=== PATIENT | male | born 1990 | race Caucasian/White ===

== ENCOUNTER 2022-11-26 11:35 | Emergency (ER) | payer OTHER, SELFPAY ==
[2022-11-26 11:40] VITALS: BP 167/90; PULSE 49; RESP 16; TEMP 36.6; O2SAT 99; BMI 21.8
[2022-11-26 12:24] LABS: Basophils Absolute Auto 0.1 10^3/uL (0.0-0.1); Basophils Percent Auto 0.4 % (0.2-2.0); Eosinophils Absolute Auto 0.1 10^3/uL (0.0-0.7); Eosinophils Percent Auto 0.5 % (0.9-7.0); Hematocrit 42.2 % (42.0-54.0); Hemoglobin 14.6 g/dL (14.0-18.0); Immature Granulocytes Abs Auto 0.05 10^3/uL (0.00-0.03); Immature Granulocytes Pct Auto 0.4 % (0.0-0.5); Lymphocytes Absolute Auto 1.2 10^3/uL (1.2-3.8); Lymphocytes Percent Auto 8.4 % (20.5-60.0); Mean Corpuscular HGB Conc 34.6 g/dL (29.9-35.2); Mean Corpuscular Hemoglobin 31.3 pg (25.9-34.0); Mean Corpuscular Volume 90.4 fL (80.0-94.0); Mean Platelet Volume 10.1 fL (9.5-13.5); Monocytes Absolute Auto 0.5 10^3/uL (0.3-0.8); Monocytes Percent Auto 3.3 % (1.7-12.0); Neutrophils Absolute Auto 12.2 10^3/uL (1.4-6.5); Platelet Count 235 10^3/uL (150-450); Red Blood Count 4.67 10^6/uL (4.70-6.10); Red Cell Distribution Width 12.8 % (11.0-15.0)
--- NOTE | 2022-11-26 12:26 | XR_ITS ---
[facility] [id number] Patient Name: SAULO GOTTI MRN: [id number] date: 1990 Sex: M Assigned Patient Location: ER Current Patient Location: ED.MAIN Accession/Order Number: [id number] Exam Date: 11/26/2022 12:33 Report Date: 11/26/2022 13:00 At the request of: MARVA CARRENO Procedure: XR chest 2V EXAMINATION: XR chest 2V 11/26/2022 9:59 AM PDT, [id number]. HISTORY: palp TECHNIQUE: 2 views of the chest were acquired. COMPARISONS: None. FINDINGS: Lines/tubes/other: None. Heart and mediastinum: Within normal limits. Bones: No acute osseous abnormality. Lungs: Clear. Pleura: No pleural effusion or pneumothorax. Other: No pneumoperitoneum. XR/XR chest 2V IMPRESSION: No significant cardiopulmonary abnormality. Electronically authenticated by: ANUJ PEÑA Date: 11/26/2022 13:00
--- NOTE | 2022-11-26 12:26 | ECG_ITS ---
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
--- NOTE | 2022-11-26 12:28 | ED.GENADUL1 ---
HPI - General Adult General Chief complaint: Abdominal Pain Stated complaint: SHORTNESS OF BREATH Time Seen by Provider: 11/26/22 12:24 Source: patient Mode of arrival: walk-in Limitations: no limitations History of Present Illness HPI narrative: Patient is a 32-year-old male who is presenting to the Emergency Room today with chief complaint of midepigastric pain at 8 AM. Patient has no fever or chills. No chest pain or tightness. Patient has long-standing history of acid reflux, patient takes omeprazole. Patient does not drink alcohol. Patient does smoke cigarettes daily. Patient takes one Aleve daily. Patient had ventricular fibrillation's and vegetables last night for dinner later than normal, 9:30 PM. Patient has long-standing history of acid reflux. Patient has never had EGD. Patient had the pain 8:00 this morning, patient states that he normally wakes up once or twice a night and vomits secondary to acid reflux he believes that is normal for him. Patient has no other abdominal pain, nausea, vomiting, or any other acute complaints. No urinary or bowel movements. No rash. Patient is afebrile, Patient Helps Move Boats and Transfers Them. No Heavy Lifting, Twisting or Turning at Work. His Mother Is at Bedside. . All systems are negative except as noted/marked. All systems reviewed and otherwise negative. . Nurses note and vital signs reviewed and patient is not hypoxic. Patient was seen and evaluated after patient had IV fluids, and was medicated. Patient is asymptomatic when I performed HPI and physical exam. Patient did have midepigastric pain, completely resolved. General: The patient appears well and in no apparent distress. Patient is resting comfortably on cart. Patient is not toxic, lethargic, or listless Skin: Warm, dry, no pallor noted. There is no rash noted. No petechiae, purpura. Head: Normocephalic, atraumatic Eye: Normal conjunctiva, no drainage, EOMI. PERRL Ears, Nose, Mouth, and Throat: oral mucosa is moist. Nares patent. Mouth without vesicles. Cardiovascular: Regular Rate and Rhythm, no murmur, gallop, rub Respiratory: Patient is in no distress, no accessory muscle use, lungs are clear to auscultation, no wheezing, rales or rhonchi Back: non-tender, no CVA tenderness bilaterally to percussion. No CT LS midline pain GI: soft, no tenderness to palpation, no masses appreciated. No rebound, guarding, or rigidity noted. No flank pain bilateral, No distention Musculoskeletal: Patient has full range of motion of all of the extremities, no motor, sensory, or focal neurological deficits Neurological: A&O x3, normal speech Psychiatric: Cooperative Related Data Home Medications Medication Instructions Recorded Confirmed omeprazole 40 mg capsule,delayed 40 mg PO .q12 11/26/22 11/26/22 release Allergies Allergy/AdvReac Type Severity Reaction Status Date / Time No Known Drug Allergies Allergy Verified 11/26/22 11:49 PFSH PFSH Social History Smoking status: Current every day smoker Exam Constitutional Vital Signs, click to edit/add: Last Vital Signs Temp 97.8 F 11/26/22 11:40 Pulse 49 L 11/26/22 11:40 Resp 16 11/26/22 11:40 BP 167/90 H 11/26/22 11:40 Pulse Ox 99 11/26/22 11:40 O2 Del Method Room Air 11/26/22 11:40 Course Vital Signs Vital signs: Vital Signs Temperature 97.8 F 11/26/22 11:40 Pulse Rate 49 L 11/26/22 11:40 Respiratory Rate 16 11/26/22 11:40 Blood Pressure 167/90 H 11/26/22 11:40 Pulse Oximetry 99 11/26/22 11:40 Oxygen Delivery Method Room Air 11/26/22 11:40 Temperature 97.8 F 11/26/22 11:40 Pulse Rate 49 L 11/26/22 11:40 Respiratory Rate 16 11/26/22 11:40 Blood Pressure 167/90 H 11/26/22 11:40 Pulse Oximetry 99 11/26/22 11:40 Oxygen Delivery Method Room Air 11/26/22 11:40 Medical Decision Making MDM Narrative Medical decision making narrative: Patient was given IV fluids, Zofran, Pepcid. Patient is symptomatically discharge. Patient's EKG, troponin, x-ray, lab work shows no acute findings. Patient does take omeprazole daily. Patient will need to follow-up with surgeon for possible EGD in the future if he continues to have acid reflux symptoms daily along with nausea and vomiting at nighttime. Patient understands the risk of chronic gastritis could be Torres's esophagus which is cancer, patient understands this. Patient had education done at bedside. 5 minutes and tobacco cessation education and counseling. Patient does not drink alcohol. No questions at discharge. Lab Data Lab results reviewed: Yes I reviewed the patient's lab results Labs: Lab Results 11/26/22 Range/Units 12:00 WBC 14.0 H (4.0-11.0) 10^3/uL RBC 4.67 L (4.70-6.10) 10^6/uL Hgb 14.6 (14.0-18.0) g/dL Hct 42.2 (42.0-54.0) % MCV 90.4 (80.0-94.0) fL MCH 31.3 (25.9-34.0) pg MCHC 34.6 (29.9-35.2) g/dL RDW 12.8 (11.0-15.0) % Plt Count 235 (150-450) 10^3/uL MPV 10.1 (9.5-13.5) fL Neut % (Auto) 87.0 H (43.0-75.0) % Lymph % (Auto) 8.4 L (20.5-60.0) % Alexander % (Auto) 3.3 (1.7-12.0) % Eos % (Auto) 0.5 L (0.9-7.0) % Baso % (Auto) 0.4 (0.2-2.0) % Neut # (Auto) 12.2 H (1.4-6.5) 10^3/uL Lymph # (Auto) 1.2 (1.2-3.8) 10^3/uL Alexander # (Auto) 0.5 (0.3-0.8) 10^3/uL Eos # (Auto) 0.1 (0.0-0.7) 10^3/uL Baso # (Auto) 0.1 (0.0-0.1) 10^3/uL Abs Immat Gran (auto) 0.05 H (0.00-0.03) 10^3/uL Imm/Tot Granulo (auto) 0.4 (0.0-0.5) % Sodium 137 (136-145) mmol/L Potassium 4.0 (3.5-5.1) mmol/L Chloride 100 (98-107) mmol/L Carbon Dioxide 27.7 (21.0-32.0) mmol/L Anion Gap 13.3 BUN 19.0 H (7.0-18.0) mg/dL Creatinine 0.72 (0.70-1.30) mg/dL Est GFR ( Amer) >60 (>=60) Est GFR (Non-Af Amer) >60 (>=60) BUN/Creatinine Ratio 26.4 Glucose 117 H (74-106) mg/dL Calcium 9.1 (8.5-10.1) mg/dL Total Bilirubin 0.4 (0.2-1.0) mg/dL AST 19 (15-37) U/L ALT 22 (16-63) U/L Alkaline Phosphatase 72 (46-116) U/L Troponin I High Sens <4.0 L (4.0-76.1) pg/mL Total Protein 8.1 (6.4-8.2) g/dL Albumin 4.6 (3.4-5.0) g/dL Globulin 3.5 g/dL Albumin/Globulin Ratio 1.3 Lipase 56.0 L (73.0-393.0) U/L ECG Data Attestation: I personally reviewed and interpreted this ECG as follows: Interpretation: EKG interpretation. Normal sinus rhythm, bradycardia, 44 beats a minute. Normal axis deviation. No acute ST elevation, no acute ectopy. QTC of 405. Discharge Plan Discharge Chief Complaint: Abdominal Pain Clinical Impression: Tobacco abuse counseling, Palpitations, Gastritis, Tobacco abuse Patient Disposition: Home, Self-Care Condition: Good Prescriptions / Home Meds: No Action omeprazole 40 mg capsule,delayed release(DR/EC) 40 mg PO .q12 Instructions: Heart Palpitations (ED), How to Stop Smoking (ED), Gastritis (ED) Additional Instructions: Use [id number] Maalox or Mylanta as needed for acute flareup of acid reflux or indigestion. With Dr. Brice for EGD as discussed at bedside for chronic acid reflux, chronic midepigastric pain. Stand Alone Forms: Portal Instructions Referrals: London Brice MD [Physician] - 1 week Physician,Neisha-MD Apollo [Primary Care Provider] - 1 week
[2022-11-26] MEDS: 0.9 % SODIUM CHLORIDE 1,000 ML 1000 ML IV (12:33)
[2022-11-26] MEDS: FAMOTIDINE/PF 20 MG/2 ML VIAL IV (12:33)
[2022-11-26] MEDS: ONDANSETRON PF 4 MG/2 ML VIAL IV (12:33)
[2022-11-26 12:36] LABS: Alanine Aminotransferase 22 U/L (16-63); Albumin Globulin Ratio 1.3; Albumin Level 4.6 g/dL (3.4-5.0); Alkaline Phosphatase 72 U/L (46-116); Anion Gap 13.3; Aspartate Amino Transferase 19 U/L (15-37); BUN Creatinine Ratio 26.4; Bilirubin Total 0.4 mg/dL (0.2-1.0); Calcium 9.1 mg/dL (8.5-10.1); Carbon Dioxide 27.7 mmol/L (21.0-32.0); Chloride 100 mmol/L (98-107); Estimated GFR (African America >60 (>=60); Estimated GFR (Non-African Ame >60 (>=60); Globulin 3.5 g/dL; Glucose 117 mg/dL (74-106); Sodium 137 mmol/L (136-145); Total Protein 8.1 g/dL (6.4-8.2)
[2022-11-26 13:10] LABS: Troponin I High Sensitivity <4.0 pg/mL (4.0-76.1)
== END 2022-11-26 13:54 | disposition home or self-care (01) ==
PROVIDERS: Emergency Provider Emergency Medicine
DX: K29.70 Gastritis, unspecified, without bleeding (principal); R00.2 Palpitations; F17.210 Nicotine dependence, cigarettes, uncomplicated; K21.9 Gastro-esophageal reflux disease without esophagitis; Z79.899 Other long term (current) drug therapy
CPT/HCPCS: 36415; 71046; 80053; 83690; 84484; 85025; 93005; 96374; 96375; 99285